=== PATIENT | female | born 1995 | race Caucasian/White ===

== ENCOUNTER 2019-08-21 14:17 | Emergency (ER) | payer OTHER ==
--- NOTE | 2019-08-21 14:41 | ER Document Report ---
ED Medical Screen (RME) - General Chief Complaint: Abdominal Pain Stated Complaint: ABDOMINAL PAIN Time Seen by Provider: 08/21/19 14:37 Mode of Arrival: Ambulatory Information source: Patient Notes: 23-year-old female presented to ED for complaint of left lower abdominal pain times a week. She states she took a home test and it was positive. She said it is time for her menstrual cycle. She denies any nausea vomiting or diarrhea. She states she is [employer] and lives with her daughter. She denies smoking drinking or doing any drugs. She is alert oriented respirat ions regular and unlabored speaking in full sentences. - Related Data Allergies/Adverse Reactions: No Known Allergies Allergy (Verified 08/21/19 14:34) Physical Exam - Vital signs Vitals: Temp Pulse Resp BP Pulse Ox 98.1 F 75 18 159/78 H 99 08/21/19 14:17 08/21/19 14:17 08/21/19 14:17 08/21/19 14:17 08/21/19 14:17 Course - Vital Signs Vital signs: Temp Pulse Resp BP Pulse Ox 98.1 F 75 18 159/78 H 99 08/21/19 14:17 08/21/19 14:17 08/21/19 14:17 08/21/19 14:17 08/21/19 14:17
--- NOTE | 2019-08-21 15:17 | ER Document Report ---
ED General - General Chief Complaint: Abdominal Pain Stated Complaint: ABDOMINAL PAIN Time Seen by Provider: 08/21/19 14:37 Mode of Arrival: Ambulatory - [facility] Notes: Patient is a 23-year-old female G2, P1 approximately 4 to 5 weeks by gestation who presents complaining of intermittent left lower abdominal pain over the past week. Patient states that she does not have any pain currently. She did have a home test that was positive. She is otherwise able to eat and drink without difficulty. She is urinating normally and having normal bowel movements. No other vaginal discharge, odor, bleeding. She has no concern of STD or STI does not want testing for it. Denies drug allergies. Denies any headache, fever, URI, sore throat, chest pain, palpitations, syncope, cough, shortness of breath, wheeze, dyspnea, nausea/vomiting/diarrhea, urinary retention, dysuria, hematuria, back pain, or rash. - Related Data Allergies/Adverse Reactions: No Known Allergies Allergy (Verified 08/21/19 14:34) Past Medical History - General Information source: Patient - Social History Smoking Status: Never Smoker Family History: Reviewed & Not Pertinent Patient has suicidal ideation: No Patient has homicidal ideation: No Review of Systems - Review of Systems -: Yes All other systems reviewed and negative Physical Exam - Vital signs Vitals: Temp Pulse Resp BP Pulse Ox 98.1 F 75 18 159/78 H 99 08/21/19 14:17 08/21/19 14:17 08/21/19 14:17 08/21/19 14:17 08/21/19 14:17 - Notes Notes: PHYSICAL EXAMINATION: GENERAL: Well-appearing, well-nourished and in no acute distress. HEAD: Atraumatic, normocephalic. EYES: Pupils equal round and reactive to light, extraocular movements intact, sclera anicteric, conjunctiva are normal. ENT: Nares patent and without discharge. oropharynx clear without exudates. No tonsilar hypertrophy or erythema. Moist mucous membranes. NECK: Normal range of motion, supple without lymphadenopathy LUNGS: Breath sounds clear to auscultation bilaterally and equal. No wheezes rales or rhonchi. HEART: Regular rate and rhythm without murmurs, rubs, gallops. ABDOMEN: Soft, nontender, nondistended abdomen. No guarding, no rebound. Normal bowel sounds present. No CVA tenderness bilaterally. Musculoskeletal: FROM to passive/active. Strength 5+/5. Extremities: No cyanosis, clubbing, or edema b/l. Peripheral pulses 2+. Capillary refill less than 3 seconds. NEUROLOGICAL: Normal speech, normal gait. PSYCH: Normal mood, normal affect. SKIN: Warm, Dry, normal turgor, no rashes or lesions noted. Course - Re-evaluation Re-evalutation: 08/21/19 17:18 Delay in patient results as lab's analyzer is down for HCG Quants. Will add the qualitative for now. 08/21/19 18:00 Patient is an afebrile, well-hydrated, 23-year-old female who presents to the ED with intermittent LLQ pain, ovarian cyst (left), and early . Vitals are acceptable without any significant tachycardia, tachypnea, or hypoxia. PE is otherwise unremarkable. CBC, CMP unremarkable for acute pathology. HCG qualitative positive. HCG quant is still pending but we will call the patient with her result. TVUS shows left ovarian cyst, no intra/extrauterine preg noted. Pt's abd is currently soft and non-tender. UA unremarkable. Patient is nontoxic-appearing is tolerating p.o. without any difficulties. No other labs or imaging warranted at this time based on H&P. Low suspicion/risk for acute appendicitis, bowel obstruction, acute cholecystitis, acute cholangitis, perforated diverticulitis, incarcerated hernia, pancreatitis, perforated ulcer, peritonitis, sepsis, pelvic inflammatory disease, tubo-ovarian abscess, ovarian torsion, or other systemic emergent condition at this time. Ectopic precautions reviewed. Patient is aware that her condition can change from initial presentation and she needs to monitor symptoms closely and seek medical attention if any acute changes. Recheck HCG in 2-3 days, may need repeat US in 7-10 days. Conservative measures otherwise for symptoms. Recheck with your PCM/OBGYN in 3-5 days. Return to the ED with any worsening/concerning symptoms otherwise as reviewed in discharge. Patient is in agreement. - Vital Signs Vital signs: Temp Pulse Resp BP Pulse Ox 98.1 F 75 18 159/78 H 99 08/21/19 14:17 08/21/19 14:17 08/21/19 14:17 08/21/19 14:17 08/21/19 14:17 - Laboratory Result Diagrams: 08/21/19 15:05 08/21/19 15:05 Laboratory results interpreted by me: 08/21/19 08/21/19 14:43 15:05 Serum HCG, Qual POSITIVE H Urine Blood SMALL H Ur Leukocyte Esterase TRACE H Discharge - Discharge Clinical Impression: Early stage of , Left ovarian cyst, Pelvic pain Condition: Stable Disposition: HOME, SELF-CARE Instructions: Ovarian Cyst ([facility]) Additional Instructions: As reviewed, your beta hCG quantitative is still pending. You were found to have a positive blood test overall. Your ultrasound was otherwise unremarkable aside from an ovarian cyst noted on the left side. We will have someone call you tonight with your results if the machine is up and running otherwise call us in the morning. It is important to have your hormone numbers rechecked in 3 days and possibly another ultrasound in 7 to 10 days as we cannot rule out an ectopic at this time. Maintain fluid intake Proper hygienic technique Keep the skin clean Tylenol/ibuprofen as needed F/u with your PCM/OBGYN in 3-5 days for a recheck Return to the ED with any development of GARZON/fever, trouble with vision, eye redness, worsening pain, urethral discharge, urinary retention, blood in the urine, flank pain, abdominal pain, n/v, Chest Pain, shortness of breath, joint pains, trouble breathing, vaginal bleeding, or any other worsening/concerning symptoms as needed otherwise. Forms: Elevated Blood Pressure, Follow-Up Laboratory Testing Referrals: [facility] [Provider Group] - Follow up as needed [facility], [facility] [NO LOCAL MD] - Follow up as needed
[2019-08-21 15:21] LABS: APPEARANCE,URINE CLEAR; BILIRUBIN,URINE NEGATIVE (NEGATIVE); COLOR,URINE YELLOW; GLUCOSE, URINE NEGATIVE (NEGATIVE); KETONES,URINE NEGATIVE (NEGATIVE); LEUKOCYTE ESTERASE,URINE TRACE (NEGATIVE); NITRITE,URINE NEGATIVE (NEGATIVE); PROTEIN,URINE NEGATIVE (NEGATIVE); URINE SPECIFIC GRAVITY 1.013; UROBILINOGEN,URINE NEGATIVE mg/dL (<2.0)
[2019-08-21 15:29] LABS: ABSOLUTE BASOPHILS # (AUTO) 0.1 10^3/uL (0.0-0.2); ABSOLUTE EOSINOPHILS # (AUTO) 0.1 10^3/uL (0.0-0.6); ABSOLUTE LYMPHOCYTES (AUTO) 1.3 10^3/uL (0.5-4.7); ABSOLUTE MONOCYTES (AUTO) 0.5 10^3/uL (0.1-1.4); ABSOLUTE NEUT (AUTO) 4.3 10^3/uL (1.7-8.2); BASOPHILS % (AUTO) 0.8 % (0-2); EOSINOPHILS % (AUTO) 1.8 % (0-6); HEMOGLOBIN 13.1 g/dL (12.0-15.5); LYMPHOCYTES % (AUTO) 21.4 % (13-45); MEAN CORPUSCULAR HEMOGLOBIN 30.4 pg (27.0-33.4); MEAN CORPUSCULAR HGB CONC 33.6 g/dL (32.0-36.0); MEAN CORPUSCULAR VOLUME 91 fl (80-97); MONOCYTES % (AUTO) 7.3 % (3-13); PLATELET COUNT 157 10^3/uL (150-450); RED BLOOD COUNT 4.31 10^6/uL (3.72-5.28); RED CELL DISTRIBUTION WIDTH 13.5 % (11.5-14.0); SEGMENTED NEUTROPHILS % (AUTO) 68.7 % (42-78); TOTAL CELLS COUNTED % (AUTO) 100 %; WHITE BLOOD COUNT 6.2 10^3/uL (4.0-10.5)
[2019-08-21 15:45] LABS: ALBUMIN 4.6 g/dL (3.5-5.0); ALKALINE PHOSPHATASE 49 U/L (38-126); ANION GAP 10 (5-19); ASPARTATE AMINO TRANSFERASE 24 U/L (14-36); BILIRUBIN,TOTAL 0.6 mg/dL (0.2-1.3); BLOOD UREA NITROGEN 12 mg/dL (7-20); CALCIUM 9.5 mg/dL (8.4-10.2); CARBON DIOXIDE 23 mmol/L (22-30); CHLORIDE 104 mmol/L (98-107); GLUCOSE 90 mg/dL (75-110); POTASSIUM 4.1 mmol/L (3.6-5.0)
--- NOTE | 2019-08-21 16:09 | RADIOLOGY REPORT (SQ) ---
EXAM DESCRIPTION: U/S OB TRANSVAGINAL W/O DOP COMPLETED DATE/TIME: 08/21/2019 3:41 pm REASON FOR STUDY: left pelvic pain + home COMPARISON: None. TECHNIQUE: Transvaginal static and realtime grayscale images acquired of the pelvis. Additional ronald cted color Doppler images recorded. All images stored on PACs. CLINICAL AGE: Not available BHCG: Not available. LIMITATIONS: None. FINDINGS: UTERUS: The uterus measures 8.4 x 5.1 x 4.6 cm. The endometrium measures 1.6 cm in doubl e wall thickness. No visualized intrauterine . The cervix is closed. RIGHT ADNEXA: The right ovary measures 2.3 x 2.5 x 3.1 cm. Flow by Doppler was the shown at the righ t ovary. There is a 1.6 x 1.8 x 1.9 cm corpus luteum cyst. LEFT ADNEXA: The left ovary measures 2.9 x 1.8 x 2.6 cm. Flow by Doppler was shown to the left ovary . There is 2.2 x 1.5 x 2.1 cm hemorrhagic cyst. FREE FLUID: Small amount of free pelvic fluid. IMPRESSION: 1. THICKENED ENDOMETRIUM WITH NO VISUALIZED INTRA- OR EXTRAUTERINE . ECTOPIC CANNOT BE EXCLUDED. FOLLOW-UP ULTRASOUND AND SERIAL BHCG LEVELS STRONGLY RECOMMENDED TO ACCURATELY ASSESS STATU S. 2. 2.2 CM HEMORRHAGIC CYST AT THE LEFT OVARY. 3. SMALL AMOUNT OF FREE PELVIC FLUID. TECHNICAL DOCUMENTATION: JOB ID: [id number] [employer]- All Rights Reserved Reading location - IP/workstation name: [email or web address]
[2019-08-21 18:17] VITALS: BP 120/73
== END 2019-08-21 18:17 | disposition home or self-care (01) ==
LOC: ER 14:17
DX: O34.80 Maternal care for other abnormalities of pelvic organs, unspecified trimester (principal); N83.202 Unspecified ovarian cyst, left side; O26.899 Other specified pregnancy related conditions, unspecified trimester; R10.2 Pelvic and perineal pain; R10.32 Left lower quadrant pain; Z3A.00 Weeks of gestation of pregnancy not specified
CPT/HCPCS: 36415; 76817; 80053; 81001; 84702; 84703; 85025; 99284